=== PATIENT | male | born 1965 | race Caucasian/White ===

== ENCOUNTER 2020-02-18 14:32 | Emergency (ER) | payer OTHER, SELFPAY ==
[2020-02-18 14:37] VITALS: BP 133/79; PULSE 90; RESP 18; TEMP 36.6; O2SAT 97
[2020-02-18 14:47] VITALS: BP 133/79; PULSE 90; RESP 18; TEMP 36.6; O2SAT 97
--- NOTE | 2020-02-18 14:55 | PC.NURSE ---
1445 pt soaking thumb in peroxide awaiting for provider.
--- NOTE | 2020-02-18 15:26 | ED.SKABFB ---
HPI - Skin/Abscess/Foreign Bdy General Chief complaint: Skin/Abscess/Foreign Body Stated complaint: Splinter in right hand finger Time Seen by Provider: 02/18/20 15:10 Source: patient Mode of arrival: ambulatory Limitations: physical limitation History of Present Illness HPI narrative: Venkatesh Beatty is a 54 yo male with no PMH who comes to express care with a splinter in Medial R thumb that he got last weekend. Pain when area is touched or pressure applied. Is leaving country and worroies about getting an infection Related Data Allergies Allergy/AdvReac Type Severity Reaction Status Date / Time No Known Allergies Allergy Verified 04/03/19 16:41 Review of Systems Review of Systems: Narrative: CONSTITUTIONAL: Denies fever, chills, sweats. EYES: Denies visual changes, redness, discharge. ENT: Denies rhinorrhea, congestion, sore throat, otalgia. CARDIOVASCULAR: Denies chest pain, palpitations, edema. RESPIRATORY: Denies dyspnea, wheezing, cough GASTROINTESTINAL: Denies abdominal pain, nausea, vomiting, diarrhea. GENITOURINARY: Denies dysuria, hematuria, abnormal discharge SKIN: Denies rash or itching.L thumb splinter from wood piece on last Sat NEUROLOGIC: Denies numbness, or focal weakness. PSYCHIATRIC: Denies anxiety or depression. [facility] Family History Family History Other No active medical problems Social History Social History (Updated 02/18/20 @ 16:03 by Terra Noel CNP) Smoking status: Never smoker Alcohol intake: never Exam Narrative: Exam Narrative: GENERAL: This is a well-nourished, well-developed patient, in mild distress. HEAD: normocephalic, atraumatic. EYES: PERRL. Sclera clear/white. Vision is grossly intact. EARS: External ears normal, auditory canals clear and without drainage, TMs normal without perforation. Hearing grossly intact. NOSE: External nose normal without nasal discharge, nares without redness, no rhinorrhea. THROAT: Mucous membranes moist, posterior pharynx NECK: Neck supple, non-tender CARDIOVASCULAR: Regular rate and rhythm without murmurs, gallops, or rubs. RESPIRATORY: Clear to auscultation. Breath sounds equal bilaterally. No wheezes, rales, or rhonchi. GASTROINTESTINAL: Abdomen soft, non-tender, SKIN: warm, intact with no suspicious lesions or rash, good texture and turgor. NEURO: awake, alert, and oriented to person, place and time. There were no obvious focal neurologic abnormalities. Steady gait EXTREMITIES: Normal range of motion. BACK: Nontender without deformity Course Vital Signs Vital signs: Vital Signs Temperature 97.9 F 02/18/20 14:37 Pulse Rate 90 02/18/20 14:37 Respiratory Rate 18 02/18/20 14:37 Blood Pressure 133/79 02/18/20 14:37 Pulse Oximetry 97 02/18/20 14:37 Temperature 97.9 F 02/18/20 14:47 Pulse Rate 90 02/18/20 14:47 Respiratory Rate 18 02/18/20 14:47 Blood Pressure 133/79 02/18/20 14:47 Pulse Oximetry 97 02/18/20 14:47 Procedures Foreign Body Removal Foreign Body #1: Foreign Body Removal Date: 02/18/20 Foreign Body Removal Time: 15:30 Time Out Performed: no Site: left and hand Technique: removal with forceps Confirmed by:: direct visualization Complications: none Discharge Plan Discharge Clinical Impression: Splinter Patient Disposition: Home, Self-Care Condition: Stable Instructions: Soft Tissue Foreign Body (ED) Additional Instructions: dalton clean and dry; take antibiotics per perscription Prescriptions: New cephalexin [Keflex] 500 mg capsule 500 mg PO Q8H Qty: 21 RF: 0 Follow-up/Referrals: [facility] [Primary Care Provider] - Time of Disposition: 15:40
== END 2020-02-18 15:42 | disposition home or self-care (01) ==
PROVIDERS: Emergency Provider Nurse Practitioner
DX: S61.041A Puncture wound with foreign body of right thumb without damage to nail, initial encounter (principal); W45.8XXA Other foreign body or object entering through skin, initial encounter; Z85.828 Personal history of other malignant neoplasm of skin
CPT/HCPCS: 99213; G0463

== ENCOUNTER 2021-01-22 08:18 | Emergency (ER) | payer OTHER, SELFPAY ==
[2021-01-22 08:22] VITALS: BP 118/81; PULSE 87; RESP 18; TEMP 36.4; O2SAT 98
--- NOTE | 2021-01-22 08:53 | ED.URI ---
HPI - URI/Sore Throat General Chief Complaint: Upper Respiratory Infection Stated Complaint: no voice and sore throat Time Seen by Provider: 01/22/21 08:54 Source: patient and RN notes reviewed Mode of arrival: ambulatory Limitations: no limitations History of Present Illness HPI Narrative: 55-year-old male presents with concern for sore throat, hoarse voice that started yesterday. Reports he took an at home rapid Covid test yesterday that was negative. Reports he was using Mucinex every 4 hours that helped his symptoms, however he woke up in the night with a severe sore. He denies stiff swallowing, fever, body aches, chills, sweats. Reports occasional cough. Reports his grandkids had RSV. He is concerned about his illness because he is supposed to be be seeing his grandchild tomorrow. MD elicited complaint: sore throat Related Data Home Medications Medication Instructions Recorded Confirmed atorvastatin 20 mg PO DAILY 01/22/21 01/22/21 lisinopril 5 mg PO DAILY 01/22/21 01/22/21 sildenafil 25 mg PO DIRECTED PRN 01/22/21 01/22/21 Allergies Allergy/AdvReac Type Severity Reaction Status Date / Time No Known Allergies Allergy Verified 04/03/19 16:41 Review of Systems Review of Systems: CONSTITUTIONAL: Denies malaise, chills, sweats, or fever. EYES: Denies visual changes, redness, or discharge. ENT: Reports rhinorrhea, congestion, sore throat. Denies sinus pain, otalgia CARDIOVASCULAR: Denies chest pain, palpitations, or edema. RESPIRATORY: Reports cough. Denies dyspnea. GASTROINTESTINAL: Denies abdominal pain, nausea, vomiting, diarrhea SKIN: Denies rash or itching. MUSCULOSKELETAL: Denies myalgia. NEUROLOGIC: Denies headache. All systems reviewed & are unremarkable except as noted in HPI and below PMFSH Family History Family History Other No active medical problems Social History Social History (Updated 02/18/20 @ 16:03 by Terra Noel CNP) Smoking status: Never smoker Alcohol intake: never Comments At time of signature, agree with nursing past medical, surgical, social and family history. There is no relevant family history pertinent to the presenting complaint Exam Narrative: GENERAL: Well-appearing, well-nourished, and in no acute distress. HEAD: Normocephalic EYES: PERRLA, conjunctivae clear ENT: Nares clear, left turbinates edematous and erythematous, clear discharge. Mucous membranes moist. TM pearly dupont with dull light reflex on the left, sharp reflex on the right; no tragal tenderness. Oropharynx erythematous without lesions, postnasal drainage noted. Tonsils not enlarged and without exudate, no drooling, no hoarseness, no trismus, uvula midline. NECK: Supple. No lymphadenopathy CHEST: Clear to auscultation, breath sounds equal. No wheezing, rhonchi, rales, or stridor. No respiratory distress, speaks in full sentences. HEART: Regular rate and rhythm. No murmur heard. SKIN: Warm, dry, no rash. NEURO: Alert and oriented x3. PSYCH: Normal mood and affect Course Course Emergency Course: Patient is aware of diagnosis, understands and agrees to treatment plan. Anticipatory guidance given. Patient agrees to follow-up as directed and is aware of reasons to seek care at the emergency department. Portions of this record may have been created with voice recognition software Vital Signs Vital signs: Vital Signs Temperature 97.5 F L 01/22/21 08:22 Pulse Rate 87 01/22/21 08:22 Respiratory Rate 18 01/22/21 08:22 Blood Pressure 118/81 01/22/21 08:22 Pulse Oximetry 98 01/22/21 08:22 Temperature 97.5 F L 01/22/21 08:22 Pulse Rate 87 01/22/21 08:22 Respiratory Rate 18 01/22/21 08:22 Blood Pressure 118/81 01/22/21 08:22 Pulse Oximetry 98 01/22/21 08:22 Reviewed. MDM - URI/Sore Throat MDM Narrative Medical decision making narrative: Differential diagnosis considered: Keller virus, strep pharyngit
[2021-01-23 18:39] LABS: SARS-CoV-2 RNA PCR Negative
== END 2021-01-22 09:22 | disposition home or self-care (01) ==
PROVIDERS: Emergency Provider Nurse Practitioner
DX: J06.9 Acute upper respiratory infection, unspecified (principal)
CPT/HCPCS: 87081; 87420; 87880; 99213; C9803; G0463; U0003; U0005

== ENCOUNTER 2023-10-09 12:40 | Emergency (ER) | payer OTHER, SELFPAY ==
[2023-10-09 12:58] VITALS: BP 126/64; PULSE 67; RESP 20; TEMP 36.6; O2SAT 100
[2023-10-09 13:00] VITALS: BP 126/64; PULSE 67; RESP 20; TEMP 36.6; O2SAT 100
--- NOTE | 2023-10-09 13:05 | ED.SKABFB ---
HPI - Skin/Abscess/Foreign Bdy General Chief complaint: Skin/Abscess/Foreign Body Stated complaint: Rash Time Seen by Provider: 10/09/23 12:59 Source: patient and RN notes reviewed Mode of arrival: ambulatory Limitations: no limitations History of Present Illness HPI narrative: Patient presents today complaining of pruritic rash to the bilateral arms, left thigh, right ankle, waistband area. Rash appeared after he had been pulling down a fence 4 days ago. He has tried calamine lotion and cortisone cream without much relief. Related Data Home Medications Medication Instructions Recorded Confirmed atorvastatin 20 mg tablet 20 mg PO DAILY 01/22/21 10/09/23 lisinopril 5 mg tablet 5 mg PO DAILY 01/22/21 10/09/23 sildenafil 25 mg tablet 25 mg PO DIRECTED PRN Sexual 01/22/21 10/09/23 Activity Allergies Allergy/AdvReac Type Severity Reaction Status Date / Time No Known Allergies Allergy Verified 10/09/23 13:00 Review of Systems Review of Systems: CONSTITUTIONAL: Denies body aches, fever, chills, or sweats. EYES: Denies visual changes, redness, or discharge. ENT: Denies rhinorrhea, congestion, sore throat, or otalgia. CARDIOVASCULAR: Denies chest pain, palpitations, or edema. RESPIRATORY: Denies cough or dyspnea. GASTROINTESTINAL: Denies abdominal pain, nausea, vomiting, or diarrhea. GENITOURINARY: Denies dysuria or hematuria. SKIN:+ pruritic rash MUSCULOSKELETAL: Denies back pain, joint pain, or myalgia. NEUROLOGIC: Denies headache, numbness, tingling, or weakness. PSYCH: Denies depression or anxiety. [facility] Family History Family History Other No active medical problems Social History Social History Smoking status: Never smoker Alcohol intake: never Comments At time of signature, I have reviewed and agree with nursing past medical, surgical, social and family history unless otherwise noted. Please see nursing chart for further information. There is no relevant family history pertinent to the presenting complaint Exam Narrative: GENERAL: Well-appearing, well-nourished, and in no acute distress. HEAD: Normocephalic, atraumatic. EYES: EOMI. No redness or drainage. Conjunctivae normal. ENT: Mucous membranes pink and moist. NECK: Normal AROM. CHEST: No respiratory distress. MUSCULOSKELETAL: No bony tenderness. EXTREMITIES: Normal range of motion. No edema. SKIN: Warm, dry. Capillary refill normal. Normal skin turgor. Patches of erythematous tiny vesicles along the bilateral arms, elbows, left outer thigh, right ankle. There is some very mild honey crusting to the right lateral elbow. NEURO: No focal deficits. Alert and oriented x3. Gait steady. PSYCH: Normal affect. No signs of depression or anxiety. Course Course Level of Care: Express Care Visit Vital Signs Vital signs: Vital Signs Temperature 98 F 10/09/23 12:58 Pulse Rate 67 10/09/23 12:58 Respiratory Rate 20 10/09/23 12:58 Blood Pressure 126/64 10/09/23 12:58 Pulse Oximetry 100 10/09/23 12:58 Oxygen Delivery Room Air 10/09/23 12:58 Temperature 98 F 10/09/23 13:00 Pulse Rate 67 10/09/23 13:00 Respiratory Rate 20 10/09/23 13:00 Blood Pressure 126/64 10/09/23 13:00 Pulse Oximetry 100 10/09/23 13:00 Oxygen Delivery Room Air 10/09/23 13:00 Reviewed MDM - Skin/Abscess/Foreign Bdy MDM Narrative Medical decision making narrative: Symptoms likely due to poison chelsey dermatitis. Patient will be placed on a prednisone taper as well as some mupirocin for the area that seems to be developing impetigo. Care instructions given. Differential Diagnosis Differential diagnosis: Likely viral exanthem, dermatophytosis, cellulitis, eczema, impetigo and contact dermatitis Critical Care Time Critical Care Time Critical Care Time: No Discharge Plan Discharge Clinic
== END 2023-10-09 13:13 | disposition home or self-care (01) ==
PROVIDERS: Emergency Provider Nurse Practitioner
DX: L23.7 Allergic contact dermatitis due to plants, except food (principal); L01.00 Impetigo, unspecified; E78.00 Pure hypercholesterolemia, unspecified; I10 Essential (primary) hypertension; Z85.828 Personal history of other malignant neoplasm of skin; Z98.52 Vasectomy status
CPT/HCPCS: 99213; G0463

== ENCOUNTER 2024-05-21 14:06 | Emergency (ER) | payer OTHER, SELFPAY ==
[2024-05-21 14:18] VITALS: BP 122/74; PULSE 90; RESP 16; TEMP 36.6; O2SAT 97
--- NOTE | 2024-05-21 14:28 | ED_ITS ---
HPI - URI/Sore Throat General Chief Complaint: Upper Respiratory Infection Stated Complaint: Sinus Congestion/Headache/Jaw Pain Time Seen by Provider: 05/21/24 14:32 Source: patient and RN notes reviewed Mode of arrival: ambulatory Limitations: no limitations History of Present Illness HPI Narrative: 58-year-old male presents with concern for chronic sinus pressure and drainage. He reports he has had many week history of sinus pressure, congestion he started having left-sided sinus pain, pressure, fullness causing dental pain. He denies fever, aches, chills, sweats. Reports he has taken Sudafed intermittently which helps sometimes. MD elicited complaint: sinus pain Related Data Home Medications ?Medication ?Instructions ?Recorded ?Confirmed ?Last Taken ?Type atorvastatin 20 mg tablet 20 mg PO DAILY 01/22/21 05/21/24 Unknown History lisinopril 5 mg tablet 5 mg PO DAILY 01/22/21 05/21/24 Unknown History sildenafil 25 mg tablet 25 mg PO DIRECTED PRN Sexual 01/22/21 05/21/24 Unknown History Activity Allergies Allergy/AdvReac Type Severity Reaction Status Date / Time No Known Allergies Allergy Verified 05/21/24 14:08 Review of Systems Review of Systems: CONSTITUTIONAL: Denies malaise, chills, sweats, or fever. EYES: Denies visual changes, redness, or discharge. ENT: Reports rhinorrhea, congestion, sinus pain, left-sided dental pain CARDIOVASCULAR: Denies chest pain, palpitations, or edema. RESPIRATORY: Reports occasional cough. Denies dyspnea. GASTROINTESTINAL: Denies abdominal pain, nausea, vomiting, diarrhea SKIN: Denies rash or itching. MUSCULOSKELETAL: Denies myalgia. NEUROLOGIC: Denies headache. All systems reviewed & are unremarkable except as noted in HPI and below PMFSH Family History Family History Other No active medical problems Social History Social History Smoking status: Never smoker Alcohol intake: never Comments At time of signature, agree with nursing past medical, surgical, social and family history. There is no relevant family history pertinent to the presenting complaint Exam Narrative: GENERAL: Well-appearing, well-nourished, and in no acute distress. HEAD: Normocephalic EYES: PERRLA, conjunctivae clear ENT: Nares clear, turbinates edematous and erythematous, clear discharge. Mucous membranes moist. TM pearly dupont with dull light reflex bilaterally; no tragal tenderness. Oropharynx not erythematous without lesions. Tonsils not enlarged and without exudate, no drooling, no hoarseness, no trismus, uvula midline. NECK: Supple. No lymphadenopathy CHEST: Clear to auscultation, breath sounds equal. No wheezing, rhonchi, rales, or stridor. No respiratory distress, speaks in full sentences. HEART: Regular rate and rhythm. No murmur heard. SKIN: Warm, dry, no rash. NEURO: Alert and oriented x3. PSYCH: Normal mood and affect Course Course Emergency Course: Patient is aware of diagnosis, understands and agrees to treatment plan. Anticipatory guidance given. Patient agrees to follow-up as directed and is aware of reasons to seek care at the emergency department. Portions of this record may have been created with voice recognition software Level of Care: Express Care Visit Vital Signs Vital signs: Vital Signs Temperature 97.8 F 05/21/24 14:18 Pulse Rate 90 05/21/24 14:18 Respiratory Rate 16 05/21/24 14:18 Blood Pressure 122/74 05/21/24 14:18 Pulse Oximetry 97 05/21/24 14:18 Oxygen Delivery Room Air 05/21/24 14:18 Temperature 97.8 F 05/21/24 14:18 Pulse Rate 90 05/21/24 14:18 Respiratory Rate 16 05/21/24 14:18 Blood Pressure 122/74 05/21/24 14:18 Pulse Oximetry 97 05/21/24 14:18 Oxygen Delivery Room Air 05/21/24 14:18 Reviewed. MDM - URI/Sore Throat MDM Narrative Medical decision making narrative: Differential diagnosis considered: Keller virus, strep pharyngitis, allergic rhinitis, upper respiratory tract infection, sinusitis, rhinosinusitis, nasopharyngitis. viral pharyngitis, otitis media, otitis externa, pneumonia, bronchitis, viral cough syndrome, viral syndrome, and influenza. Exam findings show no acute concerns or changes; patient is non-toxic appearing and is in no distress. Patient is appropriate for outpatient treatment and follow-up. Lab Data Attestation: I reviewed the patient's lab results. Critical Care Time Critical Care Time Critical Care Time: No Discharge Plan Discharge Clinical Impression: Acute bacterial sinusitis Patient Disposition: Home, Self-Care Condition: Stable Instructions: Antibiotic Form, Sinusitis (ED) Additional Instructions: Take medication as directed Nonprescription pain medications, such as acetaminophen (eg, Tylenol) or ibuprofen (eg, Motrin, Advil), are recommended for pain. Flushing the nose and sinuses with a saline solution several times per day has been proven to decrease pain associated with congestion and shorten the duration of symptoms. Nasal steroids (such as Flonase, 2 sprays in each nostril daily) can help to reduce swelling inside the nose, usually within two to three days. These drugs have few side effects and relieve symptoms in most people. Oral decongestants (pseudoephedrine and phenylephrine) may be helpful if you have associated symptoms of ear pain or fullness. Nasal decongestant sprays, including oxymetazoline (Afrin) and phenylephrine (Loco-Synephrine), can be used to temporarily treat congestion. However, these sprays should not be used for more than two to three days due to the risk of rebound congestion (when the nose becomes congested constantly unless the medication is used repeatedly), possible addiction, and long-term consequences of frequent use, including persistent nasal dryness and crusting, which is very difficult to treat once it has developed. Medications to thin secretions (such as guaifenesin) may help to clear mucus. Please follow-up with your primary care doctor in the next 1-2 days. If you cannot follow-up with your primary care doctor please go to the ED for any urgent issues. If you have any worsening of symptoms or any other concerns please go to the ED immediately. Patient Language: Luxembourgish Prescriptions: New methylprednisolone [Medrol (Carlitos)] 4 mg tablets,dose pack See Rx Instructions .ROUTE .COMPLEX Qty: 21 0RF Rx Instructions: orally per package directions amoxicillin-pot clavulanate 875-125 mg tablet 1 tablet PO Q12H 10 Days Qty: 20 0RF No Action atorvastatin 20 mg tablet 20 mg PO DAILY lisinopril 5 mg tablet 5 mg PO DAILY sildenafil 25 mg tablet 25 mg PO DIRECTED PRN (Reason: Sexual Activity) Patient Comments: 1 hour prior to sex Follow-up/Referrals: UNKNOWN,DOCTOR [Primary Care Provider] - Time of Disposition: 14:41
== END 2024-05-21 14:43 | disposition home or self-care (01) ==
PROVIDERS: Emergency Provider Nurse Practitioner
DX: J01.90 Acute sinusitis, unspecified (principal); B96.89 Other specified bacterial agents as the cause of diseases classified elsewhere
CPT/HCPCS: 99213; G0463